=== PATIENT | female | born 1930 | race Caucasian/White ===

== ENCOUNTER 2022-07-10 09:59 | Emergency (ER) | payer OTHER ==
[~2022-07-10] VITALS: Ht 144.8 cm; Wt 54.4 kg
[2022-07-10 10:05] VITALS: BP 157/105
--- NOTE | 2022-07-10 10:05 | NUR ---
PATIENT BIBA TO BED 5.
--- NOTE | 2022-07-10 10:14 | NUR ---
NURSING ASSESSMENT COMPLETED. [facility], WITH COMPLAINT OF LEFT HIP PAIN.
--- NOTE | 2022-07-10 10:25 | NUR ---
Patient being evaluated by physician at bedside.
--- NOTE | 2022-07-10 10:30 | NUR ---
patient refused to IV insertion. risks and benefits explained still refusing. made aware.
--- NOTE | 2022-07-10 10:36 | NUR ---
patient brought to CT
[2022-07-10] MEDS ORDERED: LABETALOL 20 MG/4 ML VIAL IVP ONE (10:55)
[2022-07-10] MEDS ORDERED: levETIRAcetam 1,000 MG in NACL 0.9% 100 ML IV ONE (10:55)
[2022-07-10] MEDS ORDERED: hydrALAZINE 20 MG/ML VIAL IVP ONE (11:25)
[2022-07-10] MEDS ORDERED: NICARDIPINE HYDROCHLORIDE 25 MG in NACL 0.9% 240 ML IV ONE (11:30)
[2022-07-10] MEDS ORDERED: LISI-487 PO (11:33)
[2022-07-10] MEDS ORDERED: DONE10TA10 PO ×2 (11:33)
[2022-07-10] MEDS ORDERED: ATOR40TA PO (11:33)
[2022-07-10] MEDS ORDERED: GABA300C PO (11:33)
[2022-07-10 11:43] VITALS: BP 118/42
--- NOTE | 2022-07-10 11:50 | NUR ---
Patient BP is 118/42 30 minutes after hydralazine IVP given. MD aware. will hold drip at this time. patient remains alert and oriented, denies any pain at this time, son at bedside.
[2022-07-10 11:51] LABS: BASOPHILS # (AUTO) 0.1 K/uL (0.00-0.22); BASOPHILS % (AUTO) 0.8 % (0.0-2.0); EOSINOPHILS # (AUTO) 0.3 K/uL (0-0.4); EOSINOPHILS % (AUTO) 3.1 % (0.0-4.0); HEMATOCRIT 37.6 % (36-48); HEMOGLOBIN 12.3 g/dL (12.0-16.0); LYMPHOCYTES # (AUTO) 1.5 K/uL (2.5-16.5); LYMPHOCYTES % (AUTO) 16.7 % (20.5-51.1); MEAN CORPUSCULAR HEMOGLOBIN 29 pg (27-31); MEAN CORPUSCULAR HGB CONC 33 g/dL (33-37); MEAN CORPUSCULAR VOLUME 87.3 fL (80-94); MONOCYTES # (AUTO) 0.6 K/uL (0.8-1.0); MONOCYTES % (AUTO) 6.7 % (1.7-9.3); NEUTROPHILS # (AUTO) 6.7 K/uL (1.8-7.7); NEUTROPHILS % (AUTO) 72.7 % (42.2-75.2); PLATELET COUNT (AUTO) 381 K/uL (140-450); WHITE BLOOD COUNT (AUTO) 9.2 K/uL (4.8-10.8)
--- NOTE | 2022-07-10 11:54 | NUR ---
report given to Romain CHRISTIAN at [facility]. awaiting [facility] transport
--- NOTE | 2022-07-10 12:00 | NUR ---
[facility] AT BEDSIDE FOR TRANSPORT
[2022-07-10 12:02] LABS: ALBUMIN 3.1 g/dL (3.4-5.0); ANION GAP 11.2 (8-16); ASPARTATE AMINOTRANSFERASE 21 U/L (15-37); CARBON DIOXIDE 30.6 mmol/L (21-32); CHLORIDE 107 mmol/L (98-107); CREATININE 0.8 mg/dL (0.6-1.3); GLUCOSE 124 mg/dL (74-106); POTASSIUM 3.8 mmol/L (3.5-5.1); SODIUM SERUM 145 mmol/L (136-145); TOTAL BILIRUBIN 0.4 mg/dL (0.0-1.0); UREA NITROGEN, BLOOD 12 mg/dL (7-18)
--- NOTE | 2022-07-10 12:11 | NUR ---
Patient to be transferred to [facility]. Is being transferred due to need higher of care. Receiving facility has accepting physician and available space. ER physician has signed transfer form. Patient or responsible green party has agreed to transfer and signed form. Patient belongings inventoried and will be sent with patient. Copy of nursing notes, lab reports, EKG, Physicians Orders and X-rays to be sent with patient. Report called to at receiving facility. [facility] ambulance service has been called for transfer. En route to [facility].
[2022-07-10 13:03] LABS: PROTHROMBIN TIME 10.6 secs (10.8-13.4)
== END 2022-07-10 12:10 | disposition short-term general hospital (02) ==
LOC: MED 09:59
DX: S06.5X0A Traumatic subdural hemorrhage without loss of consciousness, initial encounter (principal); Z20.822 Contact with and (suspected) exposure to COVID-19; M25.552 Pain in left hip; I10 Essential (primary) hypertension; E11.9 Type 2 diabetes mellitus without complications; F03.90 Unspecified dementia, unspecified severity, without behavioral disturbance, psychotic disturbance, mood disturbance, and anxiety; Z79.899 Other long term (current) drug therapy; Z90.89 Acquired absence of other organs; W18.30XA Fall on same level, unspecified, initial encounter; Y93.89 Activity, other specified; Y92.89 Other specified places as the place of occurrence of the external cause; Y99.8 Other external cause status
CPT/HCPCS: 36415; 70450; 73502; 80053; 85025; 85610; 85730; 87426; 93005; 96365; 96375; 99291; J0360; J1953; J3490; J7030